=== PATIENT | male | born 1955 | race Caucasian/White ===

== ENCOUNTER 2021-09-19 15:41 | Outpatient (REF) | payer OTHER, SELFPAY ==
[2021-09-19 17:56] LABS: Prostate Specific Antigen 2.43 ng/mL (<0.05-4.0)
== END 2021-09-19 15:42 | disposition home or self-care (01) ==
LOC: HO.LAB 15:41
PROVIDERS: Visit Provider Physician Assistant
DX: Z12.5 Encounter for screening for malignant neoplasm of prostate (principal); C61 Malignant neoplasm of prostate
CPT/HCPCS: 36415; 84153

== ENCOUNTER 2022-01-02 15:43 | Outpatient (REF) | payer OTHER, SELFPAY | END 2022-01-02 15:44 | disposition home or self-care (01) | LOC: HO.LAB 15:43 | PROVIDERS: PCP Family Medicine; Visit Provider Physician Assistant | DX: Z12.5 Encounter for screening for malignant neoplasm of prostate (principal); C61 Malignant neoplasm of prostate | CPT/HCPCS: 36415; 84153 ==

== ENCOUNTER 2022-01-07 22:11 | Emergency (ER) | payer OTHER, SELFPAY ==
--- NOTE | ~2022-01-07 | CT_ITS ---
EXAMINATION: CT head/brain wo IV con CLINICAL INFORMATION: Reason for Exam new onset sz COMPARISON: None. TECHNIQUE: Contiguous axial imaging was performed from the skull base to vertex without intravenous contrast. Sagittal and coronal reformatted images were obtained. This CT examination was performed using dose optimization techniques as appropriate, variously including the following: * Automated exposure control * Adjustment of mA and/or kV according to patient size (this includes techniques or standardized protocols for targeted exams where dose is matched to indication/reason for exam; i.e. extremities or head) Use of iterative reconstruction technique DLP: 726 mGy-cm FINDINGS: No acute osseous or soft tissue abnormality. The mastoid air cells and visualized portions of the paranasal sinuses are well aerated. There is no evidence of acute intracranial hemorrhage or territorial infarction. No abnormal mass effect or midline shift is seen. Robbins to white matter differentiation is well preserved. No extra-axial fluid collections are identified. No hydrocephalus. No significant volume loss. There is no abnormal attenuation within the brain parenchyma. CT/CT head/brain wo IV con IMPRESSION: No acute intracranial abnormality including hemorrhage, mass effect, hydrocephalus, or acute territorial edematous infarction.
[2022-01-07 22:16] VITALS: BP 122/80; BP 129/79; PULSE 88; PULSE 92; RESP 20; TEMP 37.2; O2SAT 100; BMI 33.9
[2022-01-07] MEDS: Acetaminophen 325 MG TABLET 650 MG PO (22:25)
[2022-01-07 23:13] LABS: COVID-19 Test Negative (Negative)
[2022-01-08 00:12] LABS: Basophils Absolute Auto 0.1 X10*3/uL (0.0-0.2); Basophils Percent Auto 0.5 % (0-2); Eosinophils Absolute Auto 0.2 X10*3/uL (0.0-0.4); Eosinophils Percent Auto 0.9 % (0-4); Hematocrit 44.6 % (42.0-52.0); Hemoglobin 15.3 g/dl (14.0-18.0); Imm Gran Abs Auto 0.08 X10*3/uL (0.00-0.03); Imm Gran Pct Auto 0.5 % (0.0-0.4); Lymphocytes Absolute Auto 2.1 X10*3/uL (1.2-4.9); Lymphocytes Percent Auto 12.4 % (20-40); MANUAL DIFF FLAG NO; Mean Corpuscular HGB Conc 34.3 g/dl (31.0-36.0); Mean Corpuscular Hemoglobin 31.2 pg (27.0-33.0); Mean Platelet Volume 9.7 fL (9.4-12.4); Monocytes Absolute Auto 1.3 X10*3/uL (0.1-1.2); Monocytes Percent Auto 7.3 % (2-11); Neutrophils Absolute Auto 13.4 x10*3/uL (2.0-8.3); Neutrophils Percent Auto 78.4 % (45-73); Platelet Count 274 X10*3/uL (160-400); Red Cell Distribution Width 12.3 % (11.0-16.0); White Blood Count 17.1 X10*3/uL (4.8-10.8)
[2022-01-08 00:30] LABS: Alanine Aminotransferase 42 U/L (0-40); Albumin Level 4.6 g/dL (3.5-5.0); Alkaline Phosphatase 38 U/L (39-117); Anion Gap 17 (12-20); Aspartate Amino Transferase 26 U/L (5-37); Bilirubin Direct 0.2 mg/dL (0.0-0.5); Bilirubin Total 0.4 mg/dL (0.0-1.0); Blood Urea Nitrogen 17 mg/dL (9-16); Calcium 9.3 mg/dL (8.4-10.2); Carbon Dioxide 22 mmol/L (22-29); Chloride 102 mmol/L (96-108); Creatinine Clr Calc Pharmacy 73.5; Estimated Glomerular Filt Rate 55; Glucose Random 143 mg/dL (60-115); Lipase 49 U/L (8-78); Potassium 4.2 mmol/L (3.3-5.1); Sodium 137 mmol/L (135-145); Total Protein 7.2 g/dL (6.5-8.0)
[2022-01-08 00:45] LABS: Appearance Urine Clear; Color Urine Yellow; Glucose Urine UA Negative (Negative); Leukocyte Esterase Urine Negative (Negative); Nitrite Urine Negative (Negative); PH 5.5 (5.0-9.0); Urine Blood Negative (Negative); Urine Ketones Trace mg/dL (Negative); Urine Protein Trace mg/dL (Neg-Trace)
--- NOTE | 2022-01-08 02:09 | ED.SEIZURE ---
HPI - Seizure General Chief Complaint: Nausea/Vomiting/Diarrhea Stated Complaint: Multiple Complaints Time Seen by Provider: 01/08/22 02:07 Source: patient Mode of arrival: ambulatory Limitations: no limitations History of Present Illness HPI Narrative: Patient otherwise healthy had a good day today was sitting outside came inside felt funny with blurred vision try to go to the bathroom but before could reach the bathroom patient felt very dizzy sat down on the floor and then witnessed patient having a seizure episode with jerking movements of upper extremity lower extremities and eye up rolling whole episode lasted about a minute. Post episode patient was tired exhausted. No abdominal pain had nausea no vomiting no diarrhea. No history of head injury patient never had similar episode in the past. No family history of seizures patient sleeps well no medication to cause seizures no alcohol use Related Data Allergies Allergy/AdvReac Type Severity Reaction Status Date / Time peanut Allergy Anaphylaxis Verified 01/07/22 22:21 Review of Systems Review of Systems: Yes all other systems are reviewed and are negative [facility] Social History Social History Advance Directives: No Advance Directives Information Provided: Yes Physical Exam Vital Signs: Vital Signs: Last Vital Signs Temp 98.3 F 01/08/22 02:33 Pulse 75 01/08/22 02:33 Resp 16 01/08/22 02:33 BP 129/79 01/07/22 22:16 Pulse Ox 100 01/07/22 22:16 O2 Del Method 01/07/22 22:16 BMI result Body Mass Index 33.9 Appearance: Alert. Oriented X3. No acute distress. Eyes: PERRLA, No Nystagmus ENT: Pharynx normal. Oral Mucosa moist no tongue bite Neck: Normal inspection. Neck supple. CVS: Normal heart rate and rhythm. Pulses normal. Respiratory: No respiratory distress. Equal air entry bilateral, no wheezing/rales/rhonchi Abdomen: Soft and nontender. Bowel sounds are present, no mass palpable, no CVA tenderness Skin: Skin warm and dry. Normal skin color. Normal skin turgor. Extremities: No lower extremity edema. No calf tenderness Neuro: Oriented X 3. No motor deficit. No sensory deficit.No cerebellar signs , cranial nerves II-XII intact MDM - Seizure MDM Narrative Medical decision making narrative: Patient with possible seizure advised to follow a neurologist patient would like to wait for Raffi would like to see a neurologist first. Lab Data Attestation: I reviewed the patient's lab results. Result diagrams: 01/07/22 23:57 01/07/22 23:57 Labs: Lab Results 01/07/22 01/07/22 01/07/22 Range/Units 22:25 23:57 23:57 WBC 17.1 H (4.8-10.8) X10*3/uL RBC 4.90 (4.60-5.80) X10*6/uL Hgb 15.3 (14.0-18.0) g/dl Hct 44.6 (42.0-52.0) % MCV 91.0 (80.0-98.0) fL MCH 31.2 (27.0-33.0) pg MCHC 34.3 (31.0-36.0) g/dl RDW 12.3 (11.0-16.0) % Plt Count 274 (160-400) X10*3/uL MPV 9.7 (9.4-12.4) fL Immature Gran % (Auto) 0.5 H (0.0-0.4) % Neut % (Auto) 78.4 H (45-73) % Lymph % (Auto) 12.4 L (20-40) % [place] % (Auto) 7.3 (2-11) % Eos % (Auto) 0.9 (0-4) % Baso % (Auto) 0.5 (0-2) % Lymph # (Auto) 2.1 (1.2-4.9) X10*3/uL Hernando # (Auto) 1.3 H (0.1-1.2) X10*3/uL Eos # (Auto) 0.2 (0.0-0.4) X10*3/uL Baso # (Auto) 0.1 (0.0-0.2) X10*3/uL Abs Immat Gran (auto) 0.08 H (0.00-0.03) X10*3/uL Absolute Neuts (auto) 13.4 H (2.0-8.3) x10*3/uL Absolute Nucleated RBC 0.000 (0.0-0.012) X10*3/uL Nucleated RBC % (auto) 0.0 (0.0-0.2) /100WBC Sodium 137 (135-145) mmol/L Potassium 4.2 (3.3-5.1) mmol/L Chloride 102 (96-108) mmol/L Carbon Dioxide 22 (22-29) mmol/L Anion Gap 17 (12-20) BUN 17 H (9-16) mg/dL Creatinine 1.32 (0.5-1.4) mg/dL Estim Creat Clear Calc 73.5 Estimated GFR 55 Random Glucose 143 H (60-115) mg/dL Calcium 9.3 (8.4-10.2) mg/dL Total Bilirubin 0.4 (0.0-1.0) mg/dL Direct Bilirubin 0.2 (0.0-0.5) mg/dL AST 26 (5-37) U/L ALT 42 H (0-40) U/L Alkaline Phosphatase 38 L (39-117) U/L Total Protein 7.2 (6.5-8.0) g/dL Albumin 4.6 (3.5-5.0) g/dL Lipase 49 (8-78) U/L Urine Color Urine Appearance Urine pH (5.0-9.0) Ur Specific [place] (1.005-1.025) Urine Protein (Neg-Trace) mg/dL Urine Glucose (UA) (Negative) mg/dL Urine Ketones (Negative) mg/dL Urine Blood (Negative) Urine Nitrite (Negative) Ur Leukocyte Esterase (Negative) COVID-19 (NEREYDA) Negative (Negative) COVID-19 Clin Com See Note 01/08/22 Range/Units 00:25 WBC (4.8-10.8) X10*3/uL RBC (4.60-5.80) X10*6/uL Hgb (14.0-18.0) g/dl Hct (42.0-52.0) % MCV (80.0-98.0) fL MCH (27.0-33.0) pg MCHC (31.0-36.0) g/dl RDW (11.0-16.0) % Plt Count (160-400) X10*3/uL MPV (9.4-12.4) fL Immature Gran % (Auto) (0.0-0.4) % Neut % (Auto) (45-73) % Lymph % (Auto) (20-40) % Hernando % (Auto) (2-11) % Eos % (Auto) (0-4) % Baso % (Auto) (0-2) % Lymph # (Auto) (1.2-4.9) X10*3/uL [place] # (Auto) (0.1-1.2) X10*3/uL Eos # (Auto) (0.0-0.4) X10*3/uL Baso # (Auto) (0.0-0.2) X10*3/uL Abs Immat Gran (auto) (0.00-0.03) X10*3/uL Absolute Neuts (auto) (2.0-8.3) x10*3/uL Absolute Nucleated RBC (0.0-0.012) X10*3/uL Nucleated RBC % (auto) (0.0-0.2) /100WBC Sodium (135-145) mmol/L Potassium (3.3-5.1) mmol/L Chloride (96-108) mmol/L Carbon Dioxide (22-29) mmol/L Anion Gap (12-20) BUN (9-16) mg/dL Creatinine (0.5-1.4) mg/dL Estim Creat Clear Calc Estimated GFR Random Glucose (60-115) mg/dL Calcium (8.4-10.2) mg/dL Total Bilirubin (0.0-1.0) mg/dL Direct Bilirubin (0.0-0.5) mg/dL AST (5-37) U/L ALT (0-40) U/L Alkaline Phosphatase (39-117) U/L Total Protein (6.5-8.0) g/dL Albumin (3.5-5.0) g/dL Lipase (8-78) U/L Urine Color Yellow Urine Appearance Clear Urine pH 5.5 (5.0-9.0) Ur Specific [place] 1.020 (1.005-1.025) Urine Protein Trace (Neg-Trace) mg/dL Urine Glucose (UA) Negative (Negative) mg/dL Urine Ketones Trace (Negative) mg/dL Urine Blood Negative (Negative) Urine Nitrite Negative (Negative) Ur Leukocyte Esterase Negative (Negative) COVID-19 (NEREYDA) (Negative) COVID-19 Clin Com Discharge Plan Discharge Clinical Impression: Seizure Patient Disposition: Home, Self-Care Instructions: Epilepsy in Older Adults (ED) Additional Instructions: Is possible that you had a seizure, diagnosis has to be confirmed seizure precautions advised Follow with neurologist for further evaluation treatment Do not drive until cleared by neurologist Referrals: Ayesha Hodgson MD [Physician] - 5 days
[2022-01-08 02:33] VITALS: PULSE 75; RESP 16; TEMP 36.8
[2022-01-08] MEDS: levETIRAcetam 500 MG TABLET PO (02:43)
== END 2022-01-08 03:09 | disposition home or self-care (01) ==
PROVIDERS: Emergency Provider Internal Medicine
DX: R56.9 Unspecified convulsions (principal); Z79.899 Other long term (current) drug therapy; Z20.822 Contact with and (suspected) exposure to COVID-19
CPT/HCPCS: 36415; 70450; 80048; 80076; 81003; 83690; 85025; 87635; 99283; 99284

== ENCOUNTER 2022-01-27 15:51 | Outpatient (REF) | payer OTHER, SELFPAY ==
[2022-01-27 16:25] LABS: MANUAL DIFF FLAG NO
[2022-01-27 16:42] LABS: Basophils Absolute Auto 0.1 X10*3/uL (0.0-0.2); Basophils Percent Auto 0.9 % (0-2); Eosinophils Absolute Auto 0.4 X10*3/uL (0.0-0.4); Eosinophils Percent Auto 3.4 % (0-4); Hematocrit 44.9 % (42.0-52.0); Hemoglobin 15.1 g/dl (14.0-18.0); Imm Gran Abs Auto 0.04 X10*3/uL (0.00-0.03); Imm Gran Pct Auto 0.4 % (0.0-0.4); Lymphocytes Absolute Auto 3.1 X10*3/uL (1.2-4.9); Lymphocytes Percent Auto 27.9 % (20-40); Mean Corpuscular HGB Conc 33.6 g/dl (31.0-36.0); Mean Corpuscular Hemoglobin 30.8 pg (27.0-33.0); Mean Corpuscular Volume 91.6 fL (80.0-98.0); Monocytes Absolute Auto 0.9 X10*3/uL (0.1-1.2); Monocytes Percent Auto 7.6 % (2-11); Neutrophils Absolute Auto 6.7 x10*3/uL (2.0-8.3); Neutrophils Percent Auto 59.8 % (45-73); Platelet Count 281 X10*3/uL (160-400); Red Cell Distribution Width 12.4 % (11.0-16.0); White Blood Count 11.2 X10*3/uL (4.8-10.8)
[2022-01-27 17:10] LABS: Rheumatoid Factor < 15.0 IU/mL (<15.0)
[2022-01-27 17:18] LABS: Erythrocyte Sedimentation Rate 2 MM/HR (0-15)
[2022-01-28 05:18] LABS: Syphilis Screen Nonreactive (Nonreactive)
[2022-01-29 08:47] LABS: Lyme Abs Screen <0.90 index
[2022-01-30 12:51] LABS: Anti Nuclear Antibody Screen POSITIVE (NEGATIVE); Anti Nuclear Antibody Titer 1:40 titer
== END 2022-01-27 15:52 | disposition home or self-care (01) ==
LOC: HO.LAB 15:51
PROVIDERS: PCP Family Medicine; Visit Provider Psychiatry & Neurology Neurology
DX: R56.9 Unspecified convulsions (principal); D72.829 Elevated white blood cell count, unspecified
CPT/HCPCS: 36415; 85025; 85652; 86038; 86039; 86431; 86617; 86618; 86780

== ENCOUNTER 2022-02-10 16:23 | Outpatient (REF) | payer OTHER, SELFPAY ==
--- NOTE | ~2022-02-10 | MR_ITS ---
EXAMINATION: MR BRAIN WITHOUT AND WITH CONTRAST CLINICAL INFORMATION: 66-year-old with seizure. COMPARISON: None TECHNIQUE: Multiplanar, multisequence MRI of the brain was obtained before and after the intravenous administration of 10 mL Gadavist. FINDINGS: Brain Volume: Within normal limits within the limitations of qualitative assessment. Structural: No malformations. Brain and Meninges: DWI sequence demonstrates no restricted diffusion to suggest acute or subacute cerebral ischemia. Gradient refocused imaging demonstrates no abnormal magnetic susceptibility artifact to suggest hemorrhage, hemosiderin staining or abnormal mineralization. The mesial temporal lobe structures are bilaterally symmetric and normal in signal intensity with no abnormal enhancement. Scattered subcentimeter FLAIR/T2 signal hyperintensities are seen in the subcortical white matter of both cerebral hemispheres with no abnormal enhancement which are nonspecific findings but could reflect chronic ischemic microangiopathy. No intracranial mass lesions, pathologic intracranial enhancement, extra-axial fluid collections, space-occupying process, or mass effect are identified, when accounting for ghosting artifacts. Ventricles and Subarachnoid Spaces: The ventricular system and subarachnoid spaces are within normal limits without hydrocephalus. Orbital Structures: Bilateral lens extractions are noted. There is nonspecific bilateral proptosis. Vascular: Signal voids are noted in the visualized major intracranial vessels. Osseous Structures, Sinuses/Mastoids, Extracranial Soft Tissues: Osseous structures appear grossly intact. There is minor mucosal thickening in the ethmoid complex. MR/MR head/brain wo/w con IMPRESSION: 1. Scattered nonenhancing subcortical white matter T2 hyperintensities in the cerebral hemispheres bilaterally which may reflect chronic ischemic microangiopathy. 2. No evidence for infarction, hemorrhage, intracranial mass lesion, or pathologic intracranial enhancement. No extra-axial fluid collections, space-occupying process, mass effect, or hydrocephalus. 3. Bilateral proptosis is incidentally noted.
--- NOTE | ~2022-02-10 | XR_ITS ---
EXAMINATION: PRE-MRI ORBITS. CLINICAL INFORMATION: History of radiopaque foreign body in eye. COMPARISON: None TECHNIQUE: 3 views. FINDINGS: There are no radiopaque body seen in the orbits. Visualized bilateral paranasal sinuses and mastoid air cells are well-aerated. No bony abnormality. The soft tissues are normal. XR/XR pre mri screening IMPRESSION: No radiopaque foreign body seen in the orbits.
== END 2022-02-10 16:24 | disposition home or self-care (01) ==
LOC: HO.MRI 16:23
PROVIDERS: Visit Provider Psychiatry & Neurology Neurology
DX: R56.9 Unspecified convulsions (principal)
CPT/HCPCS: 70553; A9585

== ENCOUNTER 2022-06-01 15:51 | Outpatient (REF) | payer OTHER, SELFPAY ==
[2022-06-01 17:28] LABS: Blood Urea Nitrogen 15 mg/dL (9-16); Estimated Glomerular Filt Rate > 60
[2022-06-01 17:46] LABS: Prostate Specific Antigen 3.71 ng/mL (<0.05-4.0)
== END 2022-06-01 15:52 | disposition home or self-care (01) ==
LOC: HO.LAB 15:51
PROVIDERS: PCP Family Medicine; Visit Provider Physician Assistant
DX: Z12.5 Encounter for screening for malignant neoplasm of prostate (principal); C61 Malignant neoplasm of prostate
CPT/HCPCS: 36415; 82565; 84153; 84520

== ENCOUNTER 2022-12-15 15:26 | Outpatient (REF) | payer OTHER, SELFPAY | END 2022-12-15 15:27 | disposition home or self-care (01) | LOC: HO.LAB 15:26 | PROVIDERS: PCP Family Medicine; Visit Provider Urology | DX: Z12.5 Encounter for screening for malignant neoplasm of prostate (principal); C61 Malignant neoplasm of prostate | CPT/HCPCS: 36415; 84153 ==

== ENCOUNTER 2023-06-30 15:38 | Outpatient (REF) | payer OTHER, SELFPAY | END 2023-06-30 15:39 | disposition home or self-care (01) | LOC: HO.LAB 15:38 | PROVIDERS: PCP Family Medicine; Visit Provider Urology | DX: Z12.5 Encounter for screening for malignant neoplasm of prostate (principal); C61 Malignant neoplasm of prostate | CPT/HCPCS: 36415; 84153 ==

== ENCOUNTER 2024-08-14 15:25 | Outpatient (REF) | payer OTHER, SELFPAY ==
[2024-08-14 18:10] LABS: Prostate Specific Antigen 4.64 ng/mL (<0.05-4.0)
== END 2024-08-14 15:26 | disposition home or self-care (01) ==
LOC: HO.LAB 15:25
PROVIDERS: PCP Family Medicine; Visit Provider Physician Assistant Medical
DX: C61 Malignant neoplasm of prostate (principal); Z12.5 Encounter for screening for malignant neoplasm of prostate
CPT/HCPCS: 36415; 84153